=== PATIENT | female | born 1985 | race African-American/Black ===

== ENCOUNTER 2016-11-27 05:23 | Emergency (ER) | payer OTHER ==
[~2016-11-27] VITALS: Ht 157.5 cm; Wt 86.2 kg
[2016-11-27 05:32] VITALS: BP 122/67
[2016-11-27 06:13] LABS: BILIRUBIN,URINE NEGATIVE (NEG); GLUCOSE,URINE NEGATIVE (NEG); NITRITE,URINE NEGATIVE (NEG); PH,URINE 5.5; PROTEIN,URINE NEGATIVE (NEG-TRACE)
--- NOTE | 2016-11-27 06:28 | PHYS DOC ---
Past Medical History Past Medical History: UTI Past Surgical History: Tubal ligation Additional Past Surgical Histo: HERNIA Alcohol Use: None Drug Use: None Adult General Chief Complaint Chief Complaint: PAIN ON URINATION HPI HPI Patient is a 31 year old female who presents with dysuria. Patient reports 2 day history of painful urination & blood in her urine associated with suprapubic abdominal pain. She denies fevers/chills, nausea, vomiting, diarrhea , vaginal discharge or bleeding, flank pain. History of previous UTI many years ago. She is sexually active with 1 partner. Denies past medical history. Review of Systems Review of Systems Constitutional: Denies fever or chills HENT: Denies nasal congestion or sore throat Respiratory: Denies cough Cardiovascular: Denies chest pain GI: Reports abdominal pain, denies nausea, vomiting, or diarrhea : Reports dysuria & hematuria Musculoskeletal: Denies back pain Integument: Denies rash or skin lesions Neurologic: Denies headache Allergies Allergies Allergies Coded Allergies Type Severity Reaction Last Updated Verified No Known Drug Allergies 11/27/16 No Physical Exam Physical Exam Constitutional: Obese, no acute distress, non-toxic appearance. HENT: Normocephalic, atraumatic, bilateral external ears normal, oropharynx moist, nose normal. Eyes: conjunctiva normal, no discharge. Cardiovascular: RRR, no murmurs, no edema. Lungs & Thorax: LCTAB, no wheezing, no respiratory distress. Abdomen: soft, mild suprapubic abdominal tenderness otherwise nontender, no rebound/guarding, no masses, nondistended. Skin: Warm, dry, no erythema, no rash. Back: No CVA tenderness. Extremities: No tenderness, no edema. Neurologic: Alert and oriented X 3 Current Patient Data Vital Signs Vital Signs Date Time Temp Pulse Resp B/P Pulse Ox O2 Delivery O2 Flow Rate FiO2 11/27/16 05:32 98.5 85 16 99 Room Air 98.5 11/27/16 05:32 122/67 Lab Values Laboratory Tests Test 11/27/16 04:43 11/27/16 05:35 POC Urine HCG, Qualitative Hcg negative (Negative) Urine Collection Type Unknown Urine Color Yellow Urine Clarity Clear Urine pH 5.5 Urine Specific [place] >=1.030 Urine Protein Negativemg/dL (NEG-TRACE) Urine Glucose (UA) Negativemg/dL (NEG) Urine Ketones (Stick) Negativemg/dL (NEG) Urine Blood Small (NEG) Urine Nitrite Negative (NEG) Urine Bilirubin Negative (NEG) Urine Urobilinogen Dipstick 1.0mg/dL (0.2 mg/dL) Urine Leukocyte Esterase Moderate (NEG) Urine RBC Occ/HPF (0-2) Urine WBC 20-40/HPF (0-4) Urine Squamous Epithelial Cells Many/LPF Urine Bacteria Few/HPF (0-FEW) EKG EKG [] Radiology/Procedures Radiology/Procedures [] Course & Med Decision Making Course & Med Decision Making Pertinent Labs and Imaging studies reviewed. (See chart for details) Patient presents with dysuria. UA shows UTI though also contaminated. No recent UTI. Gave prescription for cipro. Recommend rest, PO hydration, tylenol /ibuprofen for pain. Follow up with Dr. Cordero or other primary care physician in 2-3 days if not improving. Come back for high fever, severe pain, uncontrolled vomiting, any otherwise worsening condition. Discharged home in stable condition. [] Dragon Disclaimer Dragon Disclaimer This electronic medical record was generated, in whole or in part, using a voice recognition dictation system. Departure Departure Impression: Primary Impression: Urinary tract infection Disposition: HOME, SELF-CARE Condition: STABLE Referrals: EMILY CORDERO MD Patient Instructions: Urinary Tract Infection, [id number] Additional Instructions: You were seen in the emergency department today for urinary tract infection. Take the prescribed antibiotic. Drink fluids to stay hydrated, take Tylenol or ibuprofen for pain. Follow-up with Dr. Cordero in the primary care clinic if not improving. Also feel free to choose a different primary care doctor if you prefer. Come back for high fever, uncontrolled vomiting, severe abdominal pain , any otherwise worsening condition. Scripts Ciprofloxacin Hcl (Cipro)250 Mg Tablet1 Tab PO BID #6 TAB Prov:CHAPIN LOUIS MD 11/27/16 CHAPIN LOUIS MD Nov 27, 2016 06:28
[2016-11-27 06:36] LABS: BACTERIA,URINE FEW /HPF (0-FEW); RBC,URINE OCC /HPF (0-2); SQUAMOUS EPITHELIAL CELL,UR MANY /LPF; WBC,URINE 20-40 /HPF (0-4)
[2016-11-27] MEDS ORDERED: CIPR250T30 PO (06:46)
== END 2016-11-27 06:51 | disposition home or self-care (01) ==
LOC: ER 05:23
DX: N39.0 Urinary tract infection, site not specified (principal); Z98.51 Tubal ligation status
CPT/HCPCS: 81001; 81025; 87086; 99284

== ENCOUNTER 2016-11-30 17:53 | Emergency (ER) | payer OTHER ==
[~2016-11-30] VITALS: Ht 157.5 cm; Wt 86.2 kg
[~2016-11-30 17:53] MED LIST: CIPR250T30 PO
[2016-11-30 18:06] VITALS: BP 116/71
[2016-11-30] MEDS ORDERED: ONDANSETRON ODT 4 MG TAB.RAPDIS. PO ONE (18:30)
--- NOTE | 2016-11-30 18:59 | RAD ---
PROCEDURE CT scan of the head without contrast 11/30/2016 HISTORY Right-sided headache for 4 days. TECHNIQUE Unenhanced contiguous, 5 millimeter axial sections were obtained through the head. One or more of the following individualized dose reduction techniques were utilized for this study: 1. Automated exposure control. 2. Adjustment of the mA and/or kV according to patient size. 3. Use of iterative reconstruction technique. FINDINGS The ventricles and sulci are within normal limits in size and configuration. No area of abnormal attenuation is seen involving the brain parenchyma. No extra-axial fluid collection is seen. No skull fracture is noted. IMPRESSION Negative study. Electronically signed by: Gerardo Gamez MD (Nov 30, 2016 18:58:28)
--- NOTE | 2016-11-30 19:08 | PHYS DOC ---
Past Medical History Past Medical History: UTI, Other Additional Past Medical Histor: frequent headaches Past Surgical History: Tubal ligation Additional Past Surgical Histo: HERNIA Alcohol Use: None Drug Use: None Adult General Chief Complaint Chief Complaint: HEADACHE HPI HPI Patient is a 31 year old female presents emergency room with complaint of right -sided headache that began approximately 4 days ago. Patient states that she often has intermittent headaches ago back several months. She denies any established history of headaches. She denies any previous imaging or evaluation by a neurologist for headaches. She denies any fevers or chills, sore throat, cough or congestion. She denies any exposure to anyone with meningitis or encephalitis. Patient states that her headache is his become more intense. She reports mild photophobia and phonophobia. She reports nausea without vomiting. She denies neck pain. She denies any focal weakness or altered sensation. Review of Systems Review of Systems Constitutional: Denies fever or chills [] Eyes: Denies change in visual acuity, redness, or eye pain [] HENT: Denies nasal congestion or sore throat [] Respiratory: Denies cough or shortness of breath [] Cardiovascular: No additional information not addressed in HPI [] GI: Denies abdominal pain, nausea, vomiting, bloody stools or diarrhea [] : Denies dysuria or hematuria [] Musculoskeletal: Denies back pain or joint pain [] Integument: Denies rash or skin lesions [] Neurologic: Denies headache, focal weakness or sensory changes [] Endocrine: Denies polyuria or polydipsia [] Current Medications Current Medications Current Medications Medications (Trade) Dose Ordered [facility] [place] Start Time Stop Time Status Last Admin Dose Admin Ondansetron HCl (Zofran Odt) 4 mg 1X ONCE 11/30/16 18:30 11/30/16 18:31 DC 11/30/16 18:51 4 MG Allergies Allergies Allergies Coded Allergies Type Severity Reaction Last Updated Verified No Known Drug Allergies 11/27/16 No Physical Exam Physical Exam Constitutional: Well developed, well nourished, mild distress, non-toxic appearance. Patient sitting in a darkened room. HENT: Normocephalic, atraumatic, bilateral external ears normal, oropharynx moist, no oral exudates, nose normal. Eyes: PERRLA, EOMI, conjunctiva normal, no discharge. [] Neck: Normal range of motion, no tenderness, supple, no stridor. Negative Brudzinski's. There is no cervical lymphadenopathy. Cardiovascular:Heart rate regular rhythm, no murmur [] Lungs & Thorax: Bilateral breath sounds clear to auscultation [] Abdomen: Bowel sounds normal, soft, no tenderness, no masses, no pulsatile masses. [] Skin: Warm, dry, no erythema, no rash. [] Back: No tenderness, no CVA tenderness. [] Extremities: No tenderness, no cyanosis, no clubbing, ROM intact, no edema. [] Neurologic: Alert and oriented X 3, cranial nerves II through XII are intact. Patient is able perform rapid alternating movement and elevation without difficulty. Romberg is negative for pronator drift. Patient ambulates with a steady, unaided gait. Psychologic: Affect normal, judgement normal, mood normal. [] Current Patient Data Vital Signs Vital Signs Date Time Temp Pulse Resp B/P Pulse Ox O2 Delivery O2 Flow Rate FiO2 11/30/16 18:06 97.9 79 16 116/71 98 Room Air 97.9 EKG EKG [] Radiology/Procedures Radiology/Procedures [facility] [address] [place] [address] IMAGING REPORT Signed PATIENT: AL DWYER ACCOUNT: [id number] : 1985 LOCATION: ER AGE: 31 SEX: F EXAM STATUS: REG ER ORD. PHYSICIAN: RENATO REESE REASON: RIGHTsided headache for 4 days. Hx of recent headaches without formal eval PROCEDURE: CT HEAD WO CONTRAST PROCEDURE CT scan of the head without contrast 11/30/2016 HISTORY Right-sided headache for 4 days. TECHNIQUE Unenhanced contiguous, 5 millimeter axial sections were obtained through the head. One or more of the following individualized dose reduction techniques were utilized for this study: 1. Automated exposure control. 2. Adjustment of the mA and/or kV according to patient size. 3. Use of iterative reconstruction technique. FINDINGS The ventricles and sulci are within normal limits in size and configuration. No area of abnormal attenuation is seen involving the brain parenchyma. No extra-axial fluid collection is seen. No skull fracture is noted. IMPRESSION Negative study. Electronically signed by: Gerardo Ruiz MD (Nov 30, 2016 18:58:28) DICTATED and SIGNED BY: GERARDO RUIZ MD DATE: 11/30/161857 CC: RENATO REESE; NO PCP; NON,STAFF ~ Course & Med Decision Making Course & Med Decision Making Patient informed Niya, her nurse, that she need to leave the emergency department to pickle pumper her children. It was explained to her respiratory leave the emergency department. Patient verbalizes understanding and left anyway. AMA form was completed. Dragon Disclaimer Dragon Disclaimer This electronic medical record was generated, in whole or in part, using a voice recognition dictation system. Departure Departure Impression: Primary Impression: Headache Additional Impression: Left against medical advice Referrals: NO PCP (PCP) Problem Qualifiers RENATO REESE Nov 30, 2016 19:08
== END 2016-11-30 18:55 | disposition left against medical advice (07) ==
LOC: ER 17:53
DX: R51 Headache (principal); H53.149 Visual discomfort, unspecified; R11.0 Nausea; Z87.440 Personal history of urinary (tract) infections
CPT/HCPCS: 70450; 99284; Q0162

== ENCOUNTER 2017-01-10 11:34 | Emergency (ER) | payer OTHER ==
[~2017-01-10] VITALS: Ht 157.5 cm; Wt 77.1 kg
[2017-01-10 11:38] VITALS: BP 120/76
[2017-01-10] MEDS ORDERED: LIDO20SO PO (12:21)
[2017-01-10] MEDS ORDERED: AMOX875T PO (12:21)
--- NOTE | 2017-01-10 12:23 | PHYS DOC ---
Past Medical History Past Medical History: UTI, Other Additional Past Medical Histor: frequent headaches Past Surgical History: Tubal ligation Additional Past Surgical Histo: HERNIA Alcohol Use: None Drug Use: None Adult General Chief Complaint Chief Complaint: SORE THROAT HPI HPI Patient is a 31 year old female with no significant medical history who presents with sore throat and a horse voice for 2 days. Patient denies any fever coughing or congestion. Review of Systems Review of Systems Constitutional: Denies fever or chills [] Eyes: Denies change in visual acuity, redness, or eye pain [] HENT: hoarse voice and sore throat [] Respiratory: Denies cough or shortness of breath [] Cardiovascular: No additional information not addressed in HPI [] GI: Denies abdominal pain, nausea, vomiting, bloody stools or diarrhea [] : Denies dysuria or hematuria [] Musculoskeletal: Denies back pain or joint pain [] Integument: Denies rash or skin lesions [] Neurologic: Denies headache, focal weakness or sensory changes [] Endocrine: Denies polyuria or polydipsia [] Allergies Allergies Allergies Coded Allergies Type Severity Reaction Last Updated Verified No Known Drug Allergies 11/27/16 No Physical Exam Physical Exam Constitutional: Well developed, well nourished, no acute distress, non-toxic appearance. [] HENT: Normocephalic, atraumatic, bilateral external ears normal, oropharynx moist, no oral exudates, nose normal. [] posterior pharynx with mild erythema no exudate Eyes: PERRLA, EOMI, conjunctiva normal, no discharge. [] Neck: Normal range of motion, no tenderness, supple, no stridor. [] Cardiovascular:Heart rate regular rhythm, no murmur [] Lungs & Thorax: Bilateral breath sounds clear to auscultation [] Abdomen: Bowel sounds normal, soft, no tenderness, no masses, no pulsatile masses. [] Skin: Warm, dry, no erythema, no rash. [] Back: No tenderness, no CVA tenderness. [] Extremities: No tenderness, no cyanosis, no clubbing, ROM intact, no edema. [] Neurologic: Alert and oriented X 3, normal motor function, normal sensory function, no focal deficits noted. [] Psychologic: Affect normal, judgement normal, mood normal. [] Current Patient Data Vital Signs Vital Signs Date Time Temp Pulse Resp B/P (MAP) Pulse Ox O2 Delivery O2 Flow Rate FiO2 01/10/17 11:38 97.9 74 18 96 Room Air 97.9 EKG EKG [] Radiology/Procedures Radiology/Procedures [] Course & Med Decision Making Course & Med Decision Making Pertinent Labs and Imaging studies reviewed. (See chart for details) Patient has pharyngitis and laryngitis, will be discharged with amoxicillin for 10 days. Tylenol/Motrin for pain or fever. Follow-up with primary care doctor in 1-2 weeks. Dragon Disclaimer Dragon Disclaimer This electronic medical record was generated, in whole or in part, using a voice recognition dictation system. Departure Departure Impression: Primary Impression: Acute pharyngitis Disposition: HOME, SELF-CARE Condition: STABLE Referrals: NO PCP (PCP) Follow-up with your doctor in one week Patient Instructions: Laryngitis, [id number], Viral and Bacterial Pharyngitis Additional Instructions: You were seen for acute pharyngitis. Use saltwater gargles. Complete your antibiotics. Take Tylenol/Motrin for pain or fever. Follow-up with your own doctor in one week. Scripts Lidocaine Hcl (LIDOCAINE HCL VISCOUS) 20 Mg/1 Ml Solution 5 ML PO TID, #100 ML Prov: HERNAN DENIS APRN 01/10/17 Amoxicillin (AMOXICILLIN) 875 Mg Tablet 1 TAB PO BID, #20 TAB Prov: HERNAN DENIS APRN 01/10/17 Problem Qualifiers Primary Impression: Acute pharyngitis Pharyngitis/tonsillitis etiology: unspecified etiology Qualified Codes: J02.9 - Acute pharyngitis, unspecified HERNAN DENIS APRN January 10, 2017 12:23
[2017-01-11 11:04] LABS: NEGATIVE OBC STREP NEG; POSITIVE OBC STREP POS
== END 2017-01-10 12:30 | disposition home or self-care (01) ==
LOC: ER 12:26
DX: J02.9 Acute pharyngitis, unspecified (principal)
CPT/HCPCS: 87070; 87880; 99283